=== PATIENT | male | born 1960 | race Caucasian/White ===

== ENCOUNTER 2018-12-14 05:26 | Observation (INO) | payer MEDICARE, OTHER ==
[2018-12-12 09:35] LABS: BASOPHILS # (AUTO) 0.1 (0.0-0.1); BASOPHILS % 0.6 % (0.0-1.0); EOSINOPHILS # (AUTO) 0.5 (0.0-0.4); EOSINOPHILS % 3.4 % (0.0-6.0); HEMATOCRIT 48.3 % (38.2-49.6); HEMOGLOBIN 16.2 g/dL (14.0-18.0); MEAN CORPUSCULAR HEMOGLOBIN 27.4 pg (28-32); MEAN CORPUSCULAR HGB CONC 33.5 g/dL (31-35); MEAN CORPUSCULAR VOLUME 81.6 fL (81-99); MONOCYTES # (AUTO) 1.1 (0.2-0.8); MONOCYTES % 7.6 % (4.4-11.3); NEUTROPHILS # (AUTO) 9.5 (2.1-6.9); PLATELET COUNT 384 x10e3/uL (140-360); RED BLOOD COUNT 5.92 x10e6/uL (4.3-5.7); RED CELL DISTRIBUTION WIDTH 14.7 % (11.7-14.4)
[2018-12-12 09:42] LABS: INR 0.84
[2018-12-12 09:43] LABS: PARTIAL THROMBOPLASTIN TIME 30.8 seconds (23.8-35.5)
[2018-12-12 09:47] LABS: ANION GAP 10.5 mmol/L (8-16); BLOOD UREA NITROGEN 32 mg/dL (7-26); BUN/CREATININE RATIO 28 (6-25); CALCIUM 9.8 mg/dL (8.4-10.2); CARBON DIOXIDE 31 mmol/L (22-29); CHLORIDE 100 mmol/L (98-107); CREATININE, SERUM 1.14 mg/dL (0.72-1.25); EST GLOMERULAR FILTRATION RATE > 60 ML/MIN (60-); GLUCOSE 93 mg/dL (74-118); POTASSIUM 3.5 mmol/L (3.5-5.1); SODIUM 138 mmol/L (136-145)
--- NOTE | 2018-12-12 10:38 | Diagnostic Imaging Report ---
EXAMINATION: CHEST 2 VIEWS INDICATION: Pre-op. COMPARISON: None FINDINGS: TUBES and LINES: None. LUNGS: Lungs are well inflated. There is no evidence of pneumonia or pulmonary edema. A nodular opacity projects over the left mid lung. PLEURA: No pleural effusion or pneumothorax. HEART AND MEDIASTINUM: The cardiomediastinal silhouette is unremarkable. BONES AND SOFT TISSUES: No acute osseous abnormality. UPPER ABDOMEN: No free air under the diaphragm. IMPRESSION: No acute radiographic abnormality. An indeterminate nodular opacity projects over the left mid lung and may represent a calcified granuloma, however chest CT is suggested for further evaluation. Signed by: Dr. Caden Addison MD on 12/12/2018 10:35 AM
[~2018-12-14] VITALS: Ht 182.9 cm; Wt 112.0 kg
[~2018-12-14 05:26] MED LIST: ACETAMINOPHEN PO; ASPIR 8181 MG PO; ATORVASTATIN CA20 MG PO; CODEINE PO; DILTIAZEM PO; IBUPROFEN400 MG PO; LANSOPRAZOLE30 MG PO; LOSARTAN-HCTZ1 EAC1 PO; NEVANAC3 ML OP; NORTRIPTYLINE H50 MG PO; TRESIBA SQ; ZEBETA10 MG PO
--- OUTSIDE RECORDS SUMMARY | 2018-12-14 05:32 | XMS REPORT | Continuity of Care Document ---
Author Author [facility] Interface Address Unknown Phone Unavailable Problems Problem Status Onset Date Classification Date Reported Comments Source UNK Active 02/11/2016 [facility] Medications Medication Details Route Status Patient Instructions Ordering Provider Order Date Source Allergies, Adverse Reactions, Alerts Substance Category Reaction Severity Reaction type Status Date Reported Comments Source Immunizations Immunization Date Given Site Status Last Updated Comments Source Results Order Name Results Value Reference Range Date Interpretation Comments Source Vital Signs Vital Sign Value Date Comments Source Encounters Location Location Details Encounter Type Encounter Number Reason For Visit Attending Provider ADM Date DC Date Status Source Procedures Procedure Code Date Perfomer Comments Source
--- OUTSIDE RECORDS SUMMARY | 2018-12-14 05:32 | XMS REPORT ---
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 Allergies, Adverse Reactions, Alerts This patient has no known allergies or adverse reactions. Medications This patient has no known medications. Results Test Description Test Time Test Comments Text Results Atomic Results Result Comments CHEST 2 VIEWS 2018-12-12 10:31:00 [facility] [address] [place] [address] Patient Name: ROSLYN PIERSON MR #: [id number] : 1960 Age/Sex: 58/M Req #: [id number] Adm Physician: Ordered by: SHRUTI GARRIDO MD Report #: [id number] Location: OR Room/Bed: Procedure: [id number] DX/CHEST 2 VIEWS Exam Date: Exam Time: REPORT STATUS: Signed EXAMINATION: CHEST 2 VIEWS INDICATION: Pre-op. COMPARISON: None FINDINGS: TUBES and LINES: None. LUNGS: Lungs are well inflated. There is no evidence of pneumonia or pulmonary edema. A nodular opacity projects over the left mid lung. PLEURA: No pleural effusion or pneumothorax. HEART AND MEDIASTINUM: The cardiomediastinal silhouette is unremarkable. BONES AND SOFT TISSUES: No acute osseous abnormality. UPPER ABDOMEN: No free air under the diaphragm. IMPRESSION: No acute radiographic abnormality. An indeterminate nodular opacity projects over the left mid lung and may represent a calcified granuloma, however chest CT is suggested for further evaluation. Signed by: Dr. Yvrose Tineo MD on 12/12/2018 10:35 AM Dictated By: YVROSE TINEO MD [id number] Transcribed By: GARRETT on 12/12/18 1035 COPY TO: SHRUTI GARRIDO MD
[2018-12-14] MEDS ORDERED: GELATIN SPONGE 12-7MM ONE (06:35)
[2018-12-14] MEDS ORDERED: THROMBIN FOR SOLN 5,000 UNIT VIAL ONE (06:35)
[2018-12-14] MEDS ORDERED: BUPIVACAINE 0.5%/EPI 30 ML SDV INJ ONE (06:35)
[2018-12-14] MEDS ORDERED: BACITRACIN 50,000 UNIT VIAL ONE (06:35)
[2018-12-14] MEDS ORDERED: ACETAMINOPHEN 1000 MG/100 ML 100 ML IV ONE (06:58)
[2018-12-14] MEDS ORDERED: LIDOCAINE HCL (LTA) 4 ML SOLN ONE (06:59)
[2018-12-14] MEDS ORDERED: CEFAZOLIN SOD 2 GM/D5W 50ML 50 ML IV ONE (06:59)
[2018-12-14] MEDS ORDERED: SOMA350 MG PO (07:14)
[2018-12-14] MEDS ORDERED: VITAMIN C1000 MG PO (07:14)
[2018-12-14] MEDS ORDERED: EYE OINTMENT OP (07:14)
[2018-12-14] MEDS ORDERED: NOVOLOG100 UNITS1 INJ (07:14)
[2018-12-14] MEDS ORDERED: IBUPROFEN 800MG/ 250ML 250 ML IV ONE (08:07)
[2018-12-14] MEDS ORDERED: NON-FORMULARY MEDICATION (Lansoprazole 30 MG) PO SCH (09:00)
[2018-12-14] MEDS ORDERED: PROMETHAZINE HCL (IM) 25 MG/ML VIAL IM PRN (09:00)
[2018-12-14] MEDS ORDERED: DEXTROSE 50% SYRINGE 50 ML IV PRN (09:00)
[2018-12-14] MEDS ORDERED: MAGNESIUM/ALUMINUM/SIMETHICONE 30 ML UDC PO PRN (09:00)
[2018-12-14] MEDS ORDERED: HYDROMORPHONE 2MG/ML 2 MG/ML ML IV PRN (09:00)
[2018-12-14] MEDS ORDERED: CARISOPRODOL 350 MG TAB PO PRN (09:00)
[2018-12-14] MEDS ORDERED: ACETAMINOPHEN 325 MG TAB PO PRN (09:00)
[2018-12-14] MEDS ORDERED: ZOLPIDEM TARTRATE 5 MG TAB PO PRN (09:00)
[2018-12-14] MEDS ORDERED: NON-FORMULARY MEDICATION (Losartan/Hydrochlorothiazide (Losartan-Hctz 100-25 Mg Tab) 1 TAB PO SCH (09:00)
[2018-12-14] MEDS ORDERED: OPTH OP SCH (09:00)
[2018-12-14] MEDS ORDERED: ONDANSETRON HCL INJ 2MG/ML 2ML 2 MG/ML VIAL IV PRN (09:00)
[2018-12-14] MEDS ORDERED: MORPHINE SULFATE 5 MG/ML VIAL IM PRN (09:00)
[2018-12-14] MEDS: TRESIBA SQ SCH ×2 (09:00→16:12)
[2018-12-14] MEDS ORDERED: NEPAFENAC 0.1% OP SCH (09:00)
--- NOTE | 2018-12-14 10:50 | NUR ---
RECEIVED PATIENT FROM PACU. PATIENT A/O X3, EVEN RESPIRATIONS ON RA. BOWEL SOUNDS ACTIVE, BM YESTERDAY. DRESSING CLEAN, DRY, AND INTACT. RIGHT HAND IV WITH NS @ 100 CC/HR. PATIENT AMBULATORY WITH STANDBY ASSIST. SCD'S IN PLACE. PAIN 2/10 IN LOWER BACK. VITAL SIGNS STABLE. BED LOW, WHEELS LOCKED, SIDE RAILS X2, CALL LIGHT IN REACH WILL CONTINUE TO MONITOR.
[2018-12-14 10:55] VITALS: BP 125/60
[2018-12-14] MEDS: INSULIN LISPRO 100 UNIT/1 ML 3ML VIAL SQ SCH ×3 (11:15→20:48)
[2018-12-14 11:21] VITALS: BP 125/60
[2018-12-14 11:24] VITALS: BP 125/60
[2018-12-14] MEDS ORDERED: MORPHINE SULFATE INJ 4 MG/ML INJ 1ML IM PRN (11:30)
[2018-12-14] MEDS: LOSARTAN POTASSIUM 100 MG TAB PO SCH (12:00)
[2018-12-14] MEDS: IBUPROFEN 400 MG TAB PO SCH ×2 (12:00→17:04)
[2018-12-14] MEDS: HYDROCHLOROTHIAZIDE 25 MG TAB PO SCH (12:00)
--- NOTE | 2018-12-14 13:15 | NUR ---
PATIENT HAS VOIDED SINCE SURGERY.
[2018-12-14] MEDS: CEPACOL SORE THROAT LOZENGES PO PRN ×2 (14:02→21:04)
[2018-12-14] MEDS: CEFAZOLIN SOD 1 GM/NS 50ML 50 ML IV SCH ×2 (14:02→22:20)
[2018-12-14] MEDS: LACTATED RINGER'S 1,000 ML IV SCH ×2 (14:02→17:08)
--- NOTE | 2018-12-14 15:54 | Operative Report ---
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 PROCEDURE: Right L4-5 redo laminotomy and medial facetectomy, and microsurgical lateral recess decompression, [id number]. ANESTHESIA: General. INDICATIONS: The patient is a 58-year-old man, who has previously undergone right L4-5 laminotomy and medial facetectomy by me in the distant past for lateral recess decompression with good results. He now presents with recurrent right L4-5 lateral recess stenosis with radicular pain in the right leg. He was taken to operating room for redo lateral recess decompression. PROCEDURE IN DETAIL: After induction of general anesthesia, the patient was placed on the operating table in prone position on a Srinivas frame. Lumbar region was prepped and draped in sterile fashion. A preoperative x-ray was obtained. A small paramedian incision was created. The lumbar fascia was opened in right of midline and a subperiosteal dissection was carried out to expose underlying laminae. An x-ray revealed localization at the L3-4 segment. One level was counted below this area and the region of the previous L4-5 laminotomy was exposed. The operating microscope was brought in. The margins of the previous laminotomy were precisely defined with a curette. A high-speed drill equipped with a stanford bur was then used to expand the previous laminotomy superiorly, laterally and inferiorly along the medial margin of the L4-5 facet joint. A thin shell of bone was left medially over the nerve root, which was then carefully microdissected off the lateral aspect of the L5 nerve root and removed. The L5 traversing nerve root was fully exposed and decompressed. The nerve root was then mobilized and underlying disk was examined. No acute disk herniation was found. Meticulous hemostasis was secured. The wound was irrigated with bacitracin solution and closed with 0 and 2-0 Vicryl sutures. The skin was closed with 3-0 Monocryl sutures in subcuticular fashion. Steri-Strips and dressing were applied. The patient was awakened, extubated, and taken to postanesthesia care unit in stable condition. No intraoperative complications were encountered. Estimated blood loss was minimal. MD ANAIS Harris /[id number]
[2018-12-14] MEDS: OPTH OP SCH (16:12)
[2018-12-14] MEDS: NEPAFENAC 0.1% OP SCH (16:12)
[2018-12-14 16:19] VITALS: BP 128/59
[2018-12-14] MEDS ORDERED: PROPOFOL IV EMULSION 10 MG/ML 20 ML VIAL ONE (18:19)
[2018-12-14] MEDS ORDERED: LIDOCAINE HCL 2% LOCAL INJ 5 ML SDV VIAL INJ ONE (18:19)
[2018-12-14] MEDS ORDERED: GLYCOPYRROLATE INJ 1MG/ 5 ML SYR ONE (18:19)
[2018-12-14] MEDS ORDERED: ONDANSETRON HCL INJ 2MG/ML 2ML 2 MG/ML VIAL ONE (18:19)
[2018-12-14] MEDS ORDERED: ROCURONIUM BROMIDE 10 MG/ML 5ML VIAL ONE (18:19)
[2018-12-14] MEDS ORDERED: EPHEDRINE SULFATE INJ 50 MG/10 ML SYR ONE (18:19)
[2018-12-14] MEDS ORDERED: NEOSTIGMINE 5 MG/5ML SYR ONE (18:19)
[2018-12-14] MEDS ORDERED: DEXAMETHASONE SOD PHOS INJ 4 MG/ML VIAL ONE (18:19)
[2018-12-14] MEDS ORDERED: SUCCINYLCHOLINE 200 MG/10 ML SYR ONE (18:19)
[2018-12-14] MEDS ORDERED: SEVOFLURANE INHAL SOLN 250 ML PEN BTL ONE (18:19)
[2018-12-14] MEDS ORDERED: MIDAZOLAM HCL 2 MG/2 ML VIAL ONE (18:32)
[2018-12-14] MEDS ORDERED: FENTANYL CITRATE/PF 100MCG/2 ML INJ ONE (18:32)
[2018-12-14 19:41] VITALS: BP 139/64
[2018-12-14 20:40] VITALS: BP 139/64
--- NOTE | 2018-12-14 20:49 | NUR ---
PATIENT AAOX3, RR EVEN AND UNLABORED, NO NEEDS VOICED AT THIS TIME. ASSISTED PT TO RESTROOM, RETURNED TO BED. BED LOCKED AND IN LOWEST POSITION, CALL LIGHT WITHIN EASY REACH. BED ALARM ACTIVATED. WILL CONTINUE TO MONITOR
[2018-12-14] MEDS ORDERED: [UNRECOGNIZED DRUG - OTHER] PO SCH (21:00)
[2018-12-14] MEDS ORDERED: ATORVASTATIN 20 MG TAB PO SCH (21:00)
[2018-12-14] MEDS ORDERED: NON-FORMULARY MEDICATION (Nortriptyline Hcl 50 MG) PO SCH (21:00)
[2018-12-14] MEDS ORDERED: BISOPROLOL FUMARATE 10 MG TAB PO SCH (21:00)
[2018-12-14] MEDS ORDERED: NORTRIPTYLINE HCL 25 MG CAP PO SCH (21:00)
[2018-12-14] MEDS ORDERED: DILTIAZEM HCL ER 120 MG CAP PO SCH (21:00)
[2018-12-14] MEDS: OXYCODONE/ACETAMINOPHEN 5-325 1 EACH TABLET PO PRN (22:54)
[2018-12-14] MEDS: CARISOPRODOL 350 MG TAB PO PRN (22:55)
[2018-12-15 00:06] VITALS: BP 130/63
[2018-12-15] MEDS: LACTATED RINGER'S 1,000 ML IV SCH ×2 (01:34→08:24)
[2018-12-15 03:49] VITALS: BP 128/60
[2018-12-15] MEDS: CEFAZOLIN SOD 1 GM/NS 50ML 50 ML IV SCH (06:44)
[2018-12-15] MEDS ORDERED: PANTOPRAZOLE SOD 40 MG TABEC PO SCH (07:30)
[2018-12-15] MEDS: TRESIBA SQ SCH (08:24)
[2018-12-15] MEDS: IBUPROFEN 400 MG TAB PO SCH (08:24)
[2018-12-15] MEDS: LOSARTAN POTASSIUM 100 MG TAB PO SCH (08:24)
[2018-12-15] MEDS: HYDROCHLOROTHIAZIDE 25 MG TAB PO SCH (08:24)
[2018-12-15] MEDS: NEPAFENAC 0.1% OP SCH (08:24)
[2018-12-15] MEDS: OPTH OP SCH (08:24)
[2018-12-15] MEDS: INSULIN LISPRO 100 UNIT/1 ML 3ML VIAL SQ SCH (08:25)
[2018-12-15 08:30] VITALS: BP 130/64
[2018-12-15] MEDS: CARISOPRODOL 350 MG TAB PO PRN (08:31)
[2018-12-15] MEDS: OXYCODONE/ACETAMINOPHEN 5-325 1 EACH TABLET PO PRN (08:31)
--- NOTE | 2018-12-15 08:32 | NUR ---
DRESSING TO LOWER BACK REMOVED AT THIS TIME. STERI STRIPS LEFT INTACT. DISCHARGE INSTRUCTIONS AND PRESCRIPTION GIVEN PT VERBALIZED UNDERSTANDING. PT REQUESTING TO SPONGE [facility]HE BEFORE GOING HOME.
[2018-12-15 08:48] VITALS: BP 130/64
== END 2018-12-15 08:52 | disposition home or self-care (01) ==
LOC: OR 05:26 → PACU V 08:56 → MED/SURG 10:50
PROVIDERS: ADMIT Neurological Surgery; ATTEND Neurological Surgery
DX: M51.16 Intervertebral disc disorders with radiculopathy, lumbar region (principal); I10 Essential (primary) hypertension; E78.5 Hyperlipidemia, unspecified; E66.9 Obesity, unspecified; Z68.33 Body mass index [BMI] 33.0-33.9, adult; E11.9 Type 2 diabetes mellitus without complications; Z87.891 Personal history of nicotine dependence; Z01.810 Encounter for preprocedural cardiovascular examination; Z01.812 Encounter for preprocedural laboratory examination; Z01.811 Encounter for preprocedural respiratory examination; K21.9 Gastro-esophageal reflux disease without esophagitis
CPT/HCPCS: 36415 ×3; 63042; 71046; 72020; 80048; 82948 ×2; 85025; 85610; 85730; 86850; 86900; 88304; 88311; 93005; G0378 ×2; J0131; J0690 ×3; J1100; J2001; J2250; J2405; J2704; J3490; J7121; S0164

== ENCOUNTER 2021-11-21 19:33 | Emergency (ER) | payer OTHER ==
[~2021-11-21] VITALS: Ht 212.1 cm; Wt 112.0 kg
[~2021-11-21 19:33] MED LIST changes: +EYE OINTMENT OP; +NOVOLOG100 UNITS1 INJ; +SOMA350 MG PO; +VITAMIN C1000 MG PO
[2021-11-21 20:08] LABS: BASOPHILS # (AUTO) 0.1 (0.0-0.1); BASOPHILS % 0.5 % (0.0-1.0); EOSINOPHILS # (AUTO) 0.7 (0.0-0.4); EOSINOPHILS % 5.6 % (0.0-6.0); HEMATOCRIT 47.8 % (38.2-49.6); HEMOGLOBIN 16.1 g/dL (14.0-18.0); LYMPHOCYTES % 32.5 % (18.0-39.1); MEAN CORPUSCULAR HEMOGLOBIN 29.2 pg (28-32); MEAN CORPUSCULAR HGB CONC 33.7 g/dL (31-35); MEAN CORPUSCULAR VOLUME 86.6 fL (81-99); MONOCYTES # (AUTO) 0.9 (0.2-0.8); MONOCYTES % 7.2 % (4.4-11.3); NEUTROPHILS # (AUTO) 6.6 (2.1-6.9); PLATELET COUNT 314 x10e3/uL (140-360); RED BLOOD COUNT 5.52 x10e6/uL (4.3-5.7)
[2021-11-21 20:15] LABS: CLARITY,URINE CLEAR (CLEAR); COLOR,URINE YELLOW (YELLOW); KETONES,URINE NEGATIVE (NEGATIVE); LEUKOCYTE ESTERASE ,URINE NEGATIVE (NEGATIVE); NITRITE,URINE NEGATIVE (NEGATIVE); PROTEIN,URINE DIPSTICK >=300 (NEGATIVE); URINE UROBILINOGEN 0.2 mg/dL (0.2 - 1)
[2021-11-21 20:33] LABS: ALBUMIN 2.9 g/dL (3.5-5.0); ALBUMIN/GLOBULIN RATIO 0.7 (0.8-2.0); ANION GAP 12.7 mmol/L (8-16); CALCIUM 8.3 mg/dL (8.4-10.2); CREATININE, SERUM 0.96 mg/dL (0.72-1.25); POTASSIUM 3.7 mmol/L (3.5-5.1)
[2021-11-21 20:49] LABS: BACTERIA,URINE RARE /HPF; EPITHELIAL CELLS,URINE FEW /LPF; RBC,URINE 0-5 /HPF (0-5); WBC,URINE (MAN) 0-5 /HPF (0-5)
[2021-11-21] MEDS ORDERED: SODIUM CHLORIDE 0.9% 100 ML ONE (20:55)
[2021-11-21] MEDS ORDERED: IOPAMIDOL 370 MG/ML 100 ML INFUS..BTL INJ ONE (20:55)
[2021-11-21 22:57] VITALS: BP 148/64
== END 2021-11-21 22:59 | disposition home or self-care (01) ==
LOC: ER 19:45
DX: R10.32 Left lower quadrant pain (principal); S30.1XXA Contusion of abdominal wall, initial encounter; W18.09XA Striking against other object with subsequent fall, initial encounter; Y92.89 Other specified places as the place of occurrence of the external cause; E11.65 Type 2 diabetes mellitus with hyperglycemia; I10 Essential (primary) hypertension; E78.5 Hyperlipidemia, unspecified; Z98.84 Bariatric surgery status
CPT/HCPCS: 36415; 74174; 80053; 81001; 83690; 85025; 99283; J7050; Q9967

== ENCOUNTER → 2025-04-29 | Outpatient (REF) | payer OTHER | LOC: RAD 13:43 | PROVIDERS: ATTEND Internal Medicine | DX: M79.621 Pain in right upper arm (principal) ==